=== PATIENT | female | born 1975 | race Caucasian/White ===

== ENCOUNTER 2021-08-24 09:06 | Outpatient (CLI) | payer MEDICARE, MEDICAID, SELFPAY | END 2021-08-24 09:07 | disposition home or self-care (01) | LOC: ANHBWCAUD 09:07 | PROVIDERS: PCP Family Medicine; Visit Provider Family Medicine | DX: H91.93 Unspecified hearing loss, bilateral (principal) | CPT/HCPCS: 92567 ==

== ENCOUNTER 2021-11-16 09:11 | Outpatient (CLI) | payer MEDICARE, MEDICAID, SELFPAY | END 2021-11-16 09:12 | disposition home or self-care (01) | PROVIDERS: PCP Family Medicine; Visit Provider Family Medicine | DX: H91.93 Unspecified hearing loss, bilateral (principal) | CPT/HCPCS: 99199 ==

== ENCOUNTER 2021-12-28 13:15 | Outpatient (CLI) | payer MEDICARE, MEDICAID, SELFPAY | END 2021-12-28 13:16 | disposition home or self-care (01) | LOC: ANHBWCAUD 13:15 | PROVIDERS: PCP Family Medicine; Visit Provider Family Medicine | DX: Z01.10 Encounter for examination of ears and hearing without abnormal findings (principal); H91.93 Unspecified hearing loss, bilateral | CPT/HCPCS: 92557; 92567 ==

== ENCOUNTER 2022-08-06 13:00 | Outpatient (RCR) | payer MEDICARE, MEDICAID, SELFPAY | END 2022-08-26 23:59 | disposition home or self-care (01) | LOC: ANHBWCAUD 13:00 | PROVIDERS: PCP Family Medicine; Visit Provider Family Medicine | DX: Z46.1 Encounter for fitting and adjustment of hearing aid (principal) | CPT/HCPCS: 99199; V5261; V5264 ==

== ENCOUNTER 2023-03-06 10:09 | Outpatient (CLI) | payer MEDICARE, MEDICAID, SELFPAY | END 2023-03-06 10:10 | disposition home or self-care (01) | PROVIDERS: PCP Family Medicine; Visit Provider Family Medicine | DX: H91.93 Unspecified hearing loss, bilateral (principal) | CPT/HCPCS: 92557; 92567 ==

== ENCOUNTER 2024-03-31 08:41 | Outpatient (CLI) | payer MEDICARE, MEDICAID, SELFPAY | END 2024-03-31 08:42 | disposition home or self-care (01) | LOC: ANHBWCAUD 08:42 | PROVIDERS: PCP Family Medicine; Visit Provider Family Medicine | DX: H90.3 Sensorineural hearing loss, bilateral (principal) | CPT/HCPCS: 92557; 92567 ==

== ENCOUNTER 2024-08-10 09:30 | Outpatient (RCR) | payer SELFPAY | END 2024-09-28 23:59 | disposition home or self-care (01) | LOC: ANHBWCAUD 09:30 | PROVIDERS: PCP Family Medicine | DX: Z46.1 Encounter for fitting and adjustment of hearing aid (principal) | CPT/HCPCS: 99199; V5257; V5264 ==

== ENCOUNTER 2025-03-29 11:00 | Outpatient (RCR) | payer SELFPAY | END 2025-05-02 23:59 | disposition home or self-care (01) | LOC: ANHBWCAUD 11:00 | PROVIDERS: PCP Family Medicine; Visit Provider Family Medicine | DX: Z46.1 Encounter for fitting and adjustment of hearing aid (principal) | CPT/HCPCS: 99199; V5264 ==